=== PATIENT | female | born 1950 | race Caucasian/White ===

== ENCOUNTER 2018-01-12 07:30 | Inpatient (IN) | payer OTHER ==
--- NOTE | 2018-01-05 10:12 | RAD REPORT ---
EXAM DESCRIPTION: RADOP - Outpt Chest Pa/Lat (2 Views) - 01/05/2018 9:43 am CLINICAL HISTORY: Preop chest, pending knee surgery COMPARISON: None. TECHNIQUE: PA and lateral views of the chest were obtained. FINDINGS: The lungs are clear of a focal consolidation, mass or acute failure finding. Lung posada a re fibrotic. Trachea is midline. Heart size is normal and central vasculature is within normal limits. No pleural effusion or pneumothorax seen. No acute bony finding noted. No acute aortic finding. IMPRESSION: Prominent interstitial markings believed to be baseline fibrotic change. No acute findi ng.
[2018-01-05 10:28] LABS: Absolute Lymphocytes (CBC) 3.8 K/uL (0.7-4.9); Absolute Monocytes 0.8 K/uL (0.1-1.3); Absolute Neutrophil 5.9 K/uL (1.8-8.0); Basophils % 1.4 % (0-1.3); Eosinophils % 0.8 % (0-4.4); Hematocrit 42.6 % (36.0-45.0); Lymphocytes % 35.7 % (15.3-44.8); MCH 28.9 pg (27.0-35.0); MCV 87.8 fL (80-100); MPV 10.6 fL (7.6-11.3); Monocytes % 7.3 % (3.3-12.3); RBC Red Blood Cell Count 4.85 M/uL (3.86-4.86)
[2018-01-05 10:36] LABS: Protime INR 0.92
[2018-01-05 10:40] LABS: Potassium 5.2 mEq/L (3.6-5.0)
[2018-01-05 11:09] LABS: Urine Appearance SL CLOUDY; Urine Bilirubin NEGATIVE (NEG); Urine Blood NEGATIVE (NEG); Urine Color YELLOW; Urine Glucose NEGATIVE (NEG); Urine Protein NEGATIVE (NEG); Urine Specific Gravity 1.025 (1.005-1.030); Urine pH 5.5 (5.0-7.0)
[2018-01-05 11:11] LABS: Urine Microscopic Reflex ORDER UMIC; Urine Urobilinogen 0.2 mg/dL (0.2-1.0)
[2018-01-05 11:28] LABS: Urine Bacteria 20-50 /HPF (<20); Urine Culture Reflex Order REFLEXED; Urine RBC <5 /HPF (NONE SEEN)
--- NOTE | 2018-01-05 14:55 | EKG ---
Test Date: 2018-01-05 Test Time: 09:47:56 Hammer Runner: JACK MEASUREMENT RESULTS: Intervals: Rate: 96 OR: 130 QRSD: 66 QT: 358 QTc: 452 [place]: P: 68 OR: 130 QRS: 32 T: 70 INTERPRETIVE STATEMENTS: Sinus rhythm with premature atrial complexes with aberrant conduction Abnormal ECG No previous ECG available for comparison Electronically Signed On 01-05-18 14:54:14 CDT by Tye Coon
[2018-01-19] MEDS ORDERED: NA CHLORIDE 0.9% 1,000 ML ONE ×3 (06:40→12:39)
[2018-01-19] MEDS ORDERED: CEFAZOLIN/SWI 1gm 1 GM/10 ML SYR ONE (06:41)
[2018-01-19] MEDS ORDERED: LIDOCAINE 2% MPF 5 ML VIAL ONE (06:47)
[2018-01-19] MEDS ORDERED: FENTANYL CITR 250 MCG/5 ML ONE (06:47)
[2018-01-19] MEDS ORDERED: PROPOFOL 200 MG/20 ML VIAL IV ONE (06:47)
[2018-01-19] MEDS ORDERED: MIDAZOLAM HCL 2 MG/2 ML INJ ONE (06:47)
[2018-01-19] MEDS ORDERED: DEXAMETHASONE 4 MG/ML VIAL ONE (06:55)
[2018-01-19] MEDS ORDERED: ROPLVACAINE HCL 20 ML ONE (06:55)
[2018-01-19] MEDS ORDERED: BUPIVACA 0.5%/EPI 0.0005%/PF 30 ML VIAL ONE (06:57)
[2018-01-19] MEDS ORDERED: TRANEXAMIC ACID 1,000 MG in NA CHLORIDE 0.9% 50 ML IV SCH (07:00)
[2018-01-19] MEDS ORDERED: BUPIVACA 0.25%/EPI 0.0005%/PF 30 ML VIAL ONE (09:05)
[2018-01-19] MEDS ORDERED: Phenylephrine HCl 10 MG/ML 1 ML VIAL ONE (09:40)
[2018-01-19] MEDS ORDERED: KETOROLAC 30 MG/ML INJ ONE (09:44)
--- NOTE | 2018-01-19 10:16 | P.BOP ---
Preoperative diagnosis: left knee osteoarthritis Postoperative diagnosis: same Primary procedure: left total knee arthroplasty Drafter Topographical: NONE,NONE Estimated blood loss: 20 cc Specimen: left knee bone remnants Findings: see dictaion Anesthesia: General Complications: None Drain(s): Urinary catheter Implants: Biomet 60 CR femur, 71 tibial tray, 10 mm CR E-poly, 34 patella Fluids & blood products: per anesthesia; TT: 91 mins @ 300 mmHg Transferred to: Recovery Room Condition: Good
[2018-01-19] MEDS ORDERED: DOCUSATE NA 100 MG CAP PO PRN (10:17)
[2018-01-19] MEDS ORDERED: ONDANSETRON 4 MG/2 ML VIAL IV PRN (10:17)
[2018-01-19] MEDS: MEPERIDINE HCL 50 MG/ML AMP ONE ×2 (10:30→10:35)
[2018-01-19] MEDS ORDERED: MEPERIDINE HCL 50 MG/ML AMP ONE (10:50)
[2018-01-19 10:53] LABS: Hematocrit 37.4 % (36.0-45.0)
--- NOTE | 2018-01-19 11:35 | RAD REPORT ---
EXAM DESCRIPTION: RAD - Knee Left 2 View - 01/19/2018 11:16 am CLINICAL HISTORY: Postop left TKA. COMPARISON: None. FINDINGS: A left total knee arthroplasty has been performed. Hardware is in expected location. A carolina gical drain is in place. Air is present in the joint space. IMPRESSION: Postoperative left knee with no unexpected finding.
[2018-01-19] MEDS: Morphine 2 MG/2 ML SYR IV PRN ×2 (14:12→18:38)
[2018-01-19 14:16] VITALS: BMI 27.8
[2018-01-19] MEDS: CEFAZOLIN/SWI 1gm 1 GM/10 ML SYR IV SCH (17:26)
[2018-01-19] MEDS: METFORMIN HCL 500 MG TAB PO SCH (17:26)
[2018-01-19] MEDS: ATORVASTATIN 20 MG TAB PO SCH (20:49)
[2018-01-19] MEDS: OXYCODONE *CR* 10 MG TAB PO SCH (20:49)
[2018-01-20] MEDS: CEFAZOLIN/SWI 1gm 1 GM/10 ML SYR IV SCH ×2 (00:35→08:22)
[2018-01-20] MEDS: HYDROCODONE/APAP 7.5/325 MG TAB PO PRN ×4 (01:05→17:18)
[2018-01-20] MEDS: LISINOPRIL 20 MG TAB PO SCH (05:49)
[2018-01-20] MEDS: ENOXAPARIN 30 MG/0.3 ML SQ SCH ×2 (05:50→17:18)
[2018-01-20 06:07] LABS: Absolute Lymphocytes (CBC) 4.7 K/uL (0.7-4.9); Absolute Monocytes 1.4 K/uL (0.1-1.3); Absolute Neutrophil 9.2 K/uL (1.8-8.0); BUN Blood Urea Nitrogen 14 mg/dL (6-20); Basophils % 0.5 % (0-1.3); Bicarbonate 24 mEq/L (21-31); Eosinophils % 0.4 % (0-4.4); Glucose Level 109 mg/dL (65-120); Hematocrit 35.1 % (36.0-45.0); Lymphocytes % 30.5 % (15.3-44.8); MCH 28.9 pg (27.0-35.0); MCV 87.5 fL (80-100); MPV 10.7 fL (7.6-11.3); Monocytes % 9.1 % (3.3-12.3); RBC Red Blood Cell Count 4.02 M/uL (3.86-4.86); Sodium Level 136 mEq/L (135-145)
--- NOTE | 2018-01-20 07:57 | P.PN ---
Subjective Date of Service: 01/20/18 Chief Complaint: s/p L TKA Subjective: No new changes (pain controlled; in CPM) Physical Examination - Vital Signs Temperature: 98.0 F Blood Pressure: 104/59 Pulse: 76 Respirations: 18 Pulse Ox (%): 94 - Physical Exam General: Alert, In no apparent distress Musculoskeletal: Other (LLE: dressing c/d/i; +EHL/FHL/GSC/TA; sensation grossly intact distally) - Studies Laboratory Data (last 24 hrs) 01/20/18 05:09: Sodium 136, Potassium 4.0, BUN 14, Creatinine 0.62, Glucose 109 01/20/18 05:09: WBC 15.5 H, Hgb 11.6 L, Hct 35.1 L, Plt Count 242 01/19/18 10:40: Hgb 12.1, Hct 37.4 Assessment And Plan - Plan Farida is a 67 yo female s/p L TKA POD#1 -acute expected postoperative blood loss anemia; continue to monitor H/H -PT to mobilize; WBAT LLE -lovenox for DVT prophylaxis -d/c conrad -patient will be admitted for at least 2 midnights
[2018-01-20] MEDS: CELECOXIB 100 MG CAPSULE PO SCH (08:21)
[2018-01-20] MEDS: METFORMIN HCL 500 MG TAB PO SCH ×2 (08:22→17:18)
[2018-01-20] MEDS: MULTIVIT W/ MINERAL TAB PO SCH (08:22)
[2018-01-20] MEDS: Morphine 2 MG/2 ML SYR IV PRN (08:23)
[2018-01-20] MEDS: OXYCODONE *CR* 10 MG TAB PO SCH ×2 (10:05→20:06)
--- NOTE | 2018-01-20 18:34 | OP ---
Date of Procedure: 01/19/2018 Surgeon: Jerry Aguiar MD Preoperative Diagnosis: Left knee osteoarthritis. Postoperative Diagnosis: Left knee osteoarthritis. Procedure Performed: Left total knee arthroplasty. Anesthesia: General LMA. Fluids: Per Anesthesia record. Ebl: 20 cc. Tourniquet Time: 91 minute at 300 mmHg. Complications: None. Implants: 1.A Biomet size 60 CR femur. 2.A 31 tibial tray. 3.A 34 patella and 10 mm CR E poly. Indication For Procedure: Ms. Perea is a 67-year-old female who presented to my clinic with signs, symptoms, and x-ray finding consistent with severe degenerative osteoarthritis. The patient failed conservative treatment measures including corticosteroid injection, viscosupplementation injections, oral anti-inflammatories, and a guided home exercise program. I discussed with the patient at length risks, benefits associated with operative and nonoperative treatment, and she expressed understandin g and elected to proceed with operative treatment. Description Of Procedure: After informed consent was obtained, the patient was identified in the pre operative holding area. The left lower extremity was marked. The patient underwent a femoral nerve block performed by Anesthesia in the recovery room and then was transferred to the operating room. S he was transferred to the operating table in supine fashion and placed under general LMA anesthesia. The left lower extremity was then prepped and draped in usual sterile fashion. A time-out was initi ated. Correct patient and procedure were confirmed and identified. The patient did receive her preo perative prophylactic antibiotics. The left lower extremity was exsanguinated and the tourniquet inf lated to 300 mmHg. Approximately a 15 cm longitudinal incision was made over the anterior aspect of the knee. Dissection was then taken down to the extensor mechanism where a median parapatellar arthr otomy was performed. The patella was anteverted. Lateral release was performed. Osteophytes were t hen removed off the patella. Fat pad was removed and the knee was placed in flexion. The medial men iscus, lateral meniscus, and ACL were removed. The fat pad and synovium were removed just proximal t o the distal femur and cutting block which had been prepared preoperatively using MRI imaging was the n placed over the femur and pins were placed. The distal femoral cutting block was then placed over the pins and distal femur was cut. Bony remnants were removed. Next, a chamfer cutting block was pl aced over the distal femur where prior pin in place. The setting was locked into position. Anterior -posterior cuts were made as well as the anterior-posterior chamfer cuts. Willie wings had been used to ensure proper depth to cuts prior to the cuts being made. Bony remnants were removed. Remaining medial and lateral meniscus were removed and the knee was placed in hyperflexion. Soft tissue was th en elevated off the proximal medial aspect of the proximal tibia. The tibial cutting block was then placed into position over the proximal tibia and an alignment vane was used to ensure proper alignment . Pins were placed. The cutting jig was then placed over the prior plate pins and the proximal tibi al was cut. The bony fragments were then removed and felt to be a pretty even and stable cut. A 10 mm spacer was then placed to ensure proper depth of the cut. It was noted to be a little tight, 2 mm of extra bone set of the proximal tibia. The trial implant including a size 60 CR femur, 31 tibial tray, 10 mm poly was then placed. There was good overall stability to the knee and good range of mot ion with full extension and flexion. Those implants were selected. Next, attention was taken to pre paring the patella. A size 34 patella was selected. A patella planer was then used to get to subcho ndral bone. The patella was drilled. A size 34 patella implant was placed. The knee was place in a range of motion. There was good overall stability to the patella. Tibial tray was marked, and the femoral holes were drilled. A trial femoral implant was removed. A tibial tray was then applied and placed in a proper position, and the tibia was prepared. The knee was then irrigated thoroughly wit h normal saline using a pulse lavage. A 30 cc of 0.5% Marcaine with epi was then injected in the syn ovium capsule and periosteum. The cement was prepared on the back table. A size 31 tibial tray was first placed, followed with excess cement removed using [place] elevators, followed by placement of the size 60 CR femur. Again excess cement was removed using a [place] elevator and a 10 mm trial poly was placed. There were good motion and good stability noted. The cement was placed in the underside of the patella and the patella implant was put into position. The knee was held in hyperextension unti l the cement hardened. The trial poly was then removed and a 10 mm CR E poly was placed, locked in p osition. The knee was then again irrigated with normal saline. Tourniquet was let down. Hemostasis was achieved using Bovie cautery. The extensor mechanism was closed interrupted running #1 Vicryl. The deep fascia was then approximated using a 0 Vicryl. Subcu tissue was approximated using a 2-0 V icryl. The skin was approximated using a 3-0 nylon. Sterile dressings were placed. The patient was awakened, transferred to PACU in stable condition. Postoperative Plan: She will be weightbearing as tolerated. Physical Therapy will be consulted to a id with mobilization, and she will be admitted to the floor for pain management and medical monitorin alecia VILLA/STEFANI Voice ID: [id number] Report ID: [id number]
[2018-01-20] MEDS: ATORVASTATIN 20 MG TAB PO SCH (20:06)
[2018-01-20 21:28] VITALS: O2SAT 96
[2018-01-21] MEDS: Morphine 2 MG/2 ML SYR IV PRN ×2 (00:27→05:29)
[2018-01-21] MEDS: LISINOPRIL 20 MG TAB PO SCH (05:30)
[2018-01-21] MEDS: ENOXAPARIN 30 MG/0.3 ML SQ SCH (05:31)
[2018-01-21 06:45] LABS: Absolute Lymphocytes (CBC) 3.2 K/uL (0.7-4.9); Absolute Monocytes 1.6 K/uL (0.1-1.3); Absolute Neutrophil 9.7 K/uL (1.8-8.0); Basophils % 0.4 % (0-1.3); Eosinophils % 0.1 % (0-4.4); Hematocrit 34.9 % (36.0-45.0); Lymphocytes % 22.3 % (15.3-44.8); MCH 28.9 pg (27.0-35.0); MCV 86.7 fL (80-100); MPV 11.4 fL (7.6-11.3); Monocytes % 10.9 % (3.3-12.3); RBC Red Blood Cell Count 4.03 M/uL (3.86-4.86)
[2018-01-21 06:53] LABS: BUN Blood Urea Nitrogen 9 mg/dL (6-20); Bicarbonate 23 mEq/L (21-31); Glucose Level 138 mg/dL (65-120); Potassium 4.1 mEq/L (3.6-5.0); Sodium Level 136 mEq/L (135-145)
[2018-01-21] MEDS: CELECOXIB 100 MG CAPSULE PO SCH (08:17)
[2018-01-21] MEDS: METFORMIN HCL 500 MG TAB PO SCH (08:17)
[2018-01-21] MEDS: MULTIVIT W/ MINERAL TAB PO SCH (08:17)
[2018-01-21] MEDS: OXYCODONE *CR* 10 MG TAB PO SCH (08:17)
--- NOTE | 2018-01-21 11:05 | P.DS ---
Admission Date: 01/19/18 Discharge Date: 01/21/18 Disposition: ROUTINE DISCHARGE Discharge Condition: GOOD Reason for Admission: s/p L TKA Consultations: none Procedures: left total knee arthroplasty Brief History of Present Illness: Farida is a 67 yo female with history of left knee osteoarthritis. She underwent left TKA on 01/18/2018 without complication. Hospital Course: Farida underwent L TKA on 01/19/2018 without complication. She was admitted to the floor postoperatively in stable condition. Her vitals and H/H were monitored and remained stable throughout her hospital course. Physical therapy was consulted and aided with mobilization and patient was found to mobilize safely. She was discharged on 01/21/2018 in stable condition with home health physical therapy. Her dressing were changed prior to discharge. Vital Signs/Physical Exam: Temp Pulse Resp BP Pulse Ox 97.1 F 105 H 18 133/72 95 01/21/18 08:00 01/21/18 08:00 01/21/18 08:00 01/21/18 08:00 01/21/18 08:00 Laboratory Data at Discharge: WBC 14.5 K/uL (4.3-10.9) H 01/21/18 05:38 Hgb 11.6 g/dL (12.0-15.0) L 01/21/18 05:38 Hct 34.9 % (36.0-45.0) L 01/21/18 05:38 Plt Count 246 K/uL (152-406) 01/21/18 05:38 PT 10.8 SECONDS (9.5-12.5) 01/05/18 09:35 INR 0.92 01/05/18 09:35 APTT 33.0 SECONDS (24.3-36.9) 01/05/18 09:35 Sodium 136 mEq/L (135-145) 01/21/18 05:38 Potassium 4.1 mEq/L (3.6-5.0) 01/21/18 05:38 BUN 9 mg/dL (6-20) 01/21/18 05:38 Creatinine 0.55 mg/dL (0.44-1.00) 01/21/18 05:38 Glucose 138 mg/dL (65-120) H 01/21/18 05:38 Home Medications: Atorvastatin Calcium [Lipitor] 20 mg PO BEDTIME 01/05/18 Lisinopril [Prinivil] 20 mg PO [id number] 01/05/18 Metformin HCl [Glucophage] 500 mg PO BIDWM 01/05/18 Multivitamin [Multivitamins] 1 each PO DAILY 01/05/18 Patient Discharge Instructions: keep dressing clean, dry and intact; may change as needed with nonadherent gauze, 4x4 and MYLES bandage Diet: Regular Activity: Weight bearing as tolerated Followup: Jerry Aguiar MD [ACTIVE - CAN ADMIT] - 02/01/18
[2018-01-21] MEDS: HYDROCODONE/APAP 7.5/325 MG TAB PO PRN (12:31)
[2018-01-21 13:21] VITALS: BP 115/58; TEMP 97.2
== END 2018-01-21 14:23 | disposition home health service (06) | DRG 470 ==
LOC: EDSTATUS 07:30 → DSO 01-19 05:44 → 2ND 01-19 12:30
PROVIDERS: ADMIT Orthopaedic Surgery Sports Medicine; ATTEND Orthopaedic Surgery Sports Medicine
PROC: 0SRD069 Replacement of Left Knee Joint with Oxidized Zirconium on Polyethylene Synthetic Substitute, Cemented, Open Approach (ICD-10-PCS; principal; 2018-01-19 07:30)
DX: M17.12 Unilateral primary osteoarthritis, left knee (principal)
CPT/HCPCS: 36415; 71046; 80048; 81003; 81015; 82962; 85014; 85018; 85025; 85610; 85730; 87086; 87088; 88304; 88305; 88311; 93005; 97163; J0690; J1650; J2175; J2250; J2270; J2370; J2405; J2795; J7030

== ENCOUNTER 2018-08-03 07:16 | Day surgery (SDC) | payer OTHER ==
--- OUTSIDE RECORDS SUMMARY | 2018-08-03 07:19 | XMS REPORT ---
:1950 Author Organization e[employer] Care Team Providers Name Role Phone Jerry Aguiar Provider Role Unavailable Allergies No Known Allergies Problems Problem Type Condition Code Onset Dates Condition Status Problem Status post total left knee Z96.652 Active replacement Medications No Known Medications Results No Known Results Summary Purpose eClinicalWorks Submission
--- OUTSIDE RECORDS SUMMARY | 2018-08-03 07:19 | XMS REPORT ---
:1950 Author Organization [employer] Care Team Providers Name Role Phone Aguiar Jerry Provider Role Unavailable Allergies No Known Allergies Problems Problem Type Condition Code Onset Dates Condition Status Problem Status post total left knee Z96.652 Active replacement Medications Medication Code Code Instructions Start End Status Dosage System Date Date Indomethacin ER [facility] 37654956269 75 MG Orally May 20, Active 1 capsule Once a day 2018 with food or milk Results No Known Results Summary Purpose eClinicalWorks Submission
--- OUTSIDE RECORDS SUMMARY | 2018-08-03 07:19 | XMS REPORT ---
:1950 Author Organization [employer] Care Team Providers Name Role Phone Jerry Aguiar Provider Role Unavailable Allergies, Adverse Reactions, Alerts Substance Reaction Event Type N.K.D.A. Info Not Available Non Drug Allergy Problems Problem Type Condition Code Onset Dates Condition Status Assessment Pain, joint, knee, left M25.562 Active Problem Status post total left knee Z96.652 Active replacement Assessment Mass of right wrist R22.31 Active Assessment Pain in right wrist M25.531 Active Assessment Status post total left knee Z96.652 Active replacement Medications Medication Code Code Instructions Start End Status Dosage System Date Date Atorvastatin [facility] 92241822475 10 MG Orally April 19, Active 1 tablet Calcium Once a day 2017 Lisinopril ND 29068160325 20 MG Orally April 19, Active 1 tablet Once a day 2017 Results No Known Results Summary Purpose eClinicalWorks Submission
--- OUTSIDE RECORDS SUMMARY | 2018-08-03 07:19 | XMS REPORT ---
:1950 Author Organization [employer] Care Team Providers Name Role Phone Jerry Aguiar Provider Role Unavailable Allergies, Adverse Reactions, Alerts Substance Reaction Event Type N.K.D.A. Info Not Available Non Drug Allergy Problems Problem Type Condition Code Onset Dates Condition Status Assessment Pain in right foot M79.671 Active Assessment Pain, joint, knee, left M25.562 Active Problem Status post total left knee Z96.652 Active replacement Assessment Mass of right wrist R22.31 Active Assessment Synovitis of right foot M65.9 Active Assessment Pain in right wrist M25.531 Active Assessment Status post total left knee Z96.652 Active replacement Medications Medication Code Code Instructions Start End Status Dosage System Date Date Atorvastatin [facility] 59183948627 10 MG Orally April 19, Active 1 tablet Calcium Once a day 2017 Lisinopril [facility] 14611446059 20 MG Orally April 19, Active 1 tablet Once a day 2017 Results No Known Results Summary Purpose eClinicalWorks Submission
--- OUTSIDE RECORDS SUMMARY | 2018-08-03 07:19 | XMS REPORT ---
:1950 Author Organization [employer] Care Team Providers Name Role Phone Jerry Aguiar Provider Role Unavailable Allergies, Adverse Reactions, Alerts Substance Reaction Event Type N.K.D.A. Info Not Available Non Drug Allergy Problems Problem Type Condition Code Onset Dates Condition Status Assessment Pain in right foot M79.671 Active Problem Status post total left knee Z96.652 Active replacement Assessment Pain in right wrist M25.531 Active Assessment Synovitis of right foot M65.9 Active Assessment Ganglion of right wrist M67.431 Active Medications Medication Code Code Instructions Start End Status Dosage System Date Date Tramadol HCl ND 52825925800 50 MG Orally Jun 07, Active 1 tablet every 6 hrs 2018 as needed Mobic ND 63488241110 7.5 MG Orally Jun 07, Active 1 tablet Once a day 2017 Atorvastatin ND 32392320690 10 MG Orally April 19, Active 1 tablet Calcium Once a day 2018 Lisinopril ND 04806483518 20 MG Orally April 19, Active 1 tablet Once a day 2018 Indomethacin ER ND 21056798751 75 MG Orally May 20, Active 1 capsule Once a day 2018 with food or milk Results No Known Results Summary Purpose eClinicalWorks Submission
[2018-08-03] MEDS ORDERED: CEFAZOLIN/SWI 1gm 1 GM/10 ML SYR ONE (07:52)
[2018-08-03] MEDS ORDERED: Ringers Lactate 1,000 ML IV ONE (07:52)
[2018-08-03] MEDS ORDERED: MIDAZOLAM HCL 2 MG/2 ML INJ ONE (08:37)
[2018-08-03] MEDS ORDERED: FENTANYL CITR 100 MCG/2 ML ONE (09:40)
[2018-08-03] MEDS ORDERED: PROPOFOL 200 MG/20 ML VIAL IV ONE (09:40)
[2018-08-03] MEDS ORDERED: LIDOCAINE 2% MPF 5 ML VIAL ONE (09:40)
[2018-08-03] MEDS: BACITRACIN 50000 UNIT VIAL ONE ×2 (10:00→10:17)
[2018-08-03] MEDS ORDERED: KETOROLAC 30 MG/ML INJ ONE (10:12)
[2018-08-03] MEDS: TRIAMCINOLONE ACETON 40 MG/ML VIAL ONE ×2 (10:22→10:26)
[2018-08-03] MEDS: MORPHINE 4 MG/ML SYR ONE ×4 (10:43→11:07)
[2018-08-03] MEDS ORDERED: HYDROCODONE/APAP 5/325 MG TAB ONE (11:47)
[2018-08-03 12:46] VITALS: BP 136/73; TEMP 97.9; O2SAT 98
== END 2018-08-03 13:05 | disposition home or self-care (01) ==
LOC: OR 07:16
PROVIDERS: ATTEND Podiatrist Foot & Ankle Surgery
PROC: 0JBQ0ZZ Excision of Right Foot Subcutaneous Tissue and Fascia, Open Approach (ICD-10-PCS; principal; 2018-08-03 08:30)
DX: D49.2 Neoplasm of unspecified behavior of bone, soft tissue, and skin (principal); I10 Essential (primary) hypertension; F17.200 Nicotine dependence, unspecified, uncomplicated
CPT/HCPCS: 28039; 88304; J0690; J2250; J2704; J3010; J3301; 88305

== ENCOUNTER 2019-07-05 06:47 | Day surgery (SDC) | payer OTHER ==
--- NOTE | 2019-07-04 16:38 | RAD REPORT ---
EXAM DESCRIPTION: RAD - Chest Pa And Lat (2 Views) - 07/04/2019 4:24 pm CLINICAL HISTORY: PRE-OP FOR HEART CATH COMPARISON: December 2017 TECHNIQUE: PA and lateral views of the chest were obtained. FINDINGS: The lungs are clear of focal infiltrate or mass. No significant failure or volume overload . Interstitial pattern is prominent with the pattern not substantially different from comparison. He art size is normal and central vasculature is within normal limits. No pleural effusion or pneumotho rax seen. No acute bony finding noted. No aortic abnormality. IMPRESSION: Prominent interstitial pattern not substantially different from comparison.
[2019-07-04 16:40] LABS: Absolute Lymphocytes (CBC) 4.4 K/uL (0.7-4.9); Basophils % 0.4 % (0-1.3); Lymphocytes % 51.5 % (15.3-44.8); MPV 10.9 fL (7.6-11.3); RBC Red Blood Cell Count 4.34 M/uL (3.86-4.86)
[2019-07-04 16:45] LABS: Protime INR 0.91
[2019-07-04 17:18] LABS: Blood Morphology Comment NOT SEEN (NOT SEEN); Platelet Estimate ADEQ
[2019-07-05] MEDS ORDERED: NA CHLORIDE 0.9% 0 ML ONE ×2 (07:14→08:13)
[2019-07-05] MEDS ORDERED: LIDOCAINE 1% MPF 30 ML VIAL ONE (07:14)
[2019-07-05] MEDS ORDERED: HEPA 1000U/500MLS 2,000 UNIT/1,000 ML BAG IV ONE (07:14)
[2019-07-05] MEDS ORDERED: NA CHLORIDE 0.9% 500 ML ONE (07:18)
[2019-07-05] MEDS ORDERED: HEPARIN 5000 UNIT/ML 1 ML VIAL ONE (08:12)
[2019-07-05] MEDS ORDERED: FENTANYL CITR 100 MCG/2 ML ONE (08:13)
[2019-07-05] MEDS ORDERED: ATROPINE SULF 1 MG/10 ML SYR IV ONE (08:13)
[2019-07-05] MEDS ORDERED: NICARDIPINE HCL 25 MG/10 ML IV ONE (08:13)
[2019-07-05] MEDS ORDERED: NITROGLYCERIN 100 MCG/ML SYR (for cath lab use only) IV ONE (08:13)
[2019-07-05] MEDS ORDERED: MIDAZOLAM HCL 2 MG/2 ML INJ ONE (08:13)
[2019-07-05] MEDS ORDERED: METOPROLOL TARTRATE 5 MG/5 ML INJ IV ONE (08:37)
[2019-07-05 11:02] VITALS: BP 136/56; TEMP 98.5; O2SAT 95
--- NOTE | 2019-07-05 19:32 | OP ---
Surgeon: Tye oCon MD Primary Care Physician: Dr. Jung. Procedure: Left heart catheterization with coronary and left ventricular angiography. Procedure Findings: The patient's ejection fraction is normal, although she has inferior wall hypoki nesis. Heart rhythm was sinus. Her aortic pressure 130/79, left ventricular end-diastolic pressure 14. No gradient on aortic valve pullback. 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 The distal p art of the right coronary is filled by collaterals and has PAUL grade 2 collateral throw both from th e LAD and obtuse marginal. The left main is free of disease. The LAD has plaquing up to 30%. The c ircumflex and its obtuse marginals have minor plaquing. No significant stenosis and the recommendati on is that the patient stop smoking, be on statin and aspirin therapy and no intervention is indicate d. No stent or bypass surgery is indicated. Procedure In Detail: The patient was brought to the cardiac laboratory engineer in a fasting, sedated with fent anyl. Prepared and draped in usual sterile fashion. Right radial artery was used. Tissues around t he artery were anesthetized with 1% lidocaine. Artery was entered using a 21-gauge needle, cannulate d with a 0.021 inch diameter, guidewire modified Seldinger technique allowed us to place a 6-Tamazight T erumo radial sheath. It was then flushed and a radial cocktail was given consisting of nicardipine, heparin, and nitroglycerin. A TIG catheter was guided into the ascending aorta using fluoroscopy and a short radius J-tip Glidewire the TIG catheter was used to angiogram right coronary, left coronary, and left ventricle. At the end of the procedure, the catheter was straightened out with a J-wire an d removed. The sheath was flushed and removed and the arteriotomy closed with a TR band. Estimated Blood Loss: 5 cc. Supervisor [employer]: Sindi Moncada. Complications: None. SHARON/MODL Voice ID: [id number] Report ID: [id number]
== END 2019-07-05 11:05 | disposition home health service (06) ==
LOC: CCL 06:47
PROVIDERS: ATTEND Internal Medicine
DX: I25.10 Atherosclerotic heart disease of native coronary artery without angina pectoris (principal); I25.82 Chronic total occlusion of coronary artery; I10 Essential (primary) hypertension; E78.5 Hyperlipidemia, unspecified; F17.210 Nicotine dependence, cigarettes, uncomplicated; E11.9 Type 2 diabetes mellitus without complications
CPT/HCPCS: 85025; 80048; 36415; 85610; 85730; 71046; 93458; C1893; J1644; J2250; J3010; J7040; J0583

== ENCOUNTER 2019-08-23 05:46 | Inpatient (IN) | payer OTHER ==
[2019-08-15 10:01] LABS: Absolute Lymphocytes (CBC) 4.9 K/uL (0.7-4.9); Basophils % 1.2 % (0-1.3); Hematocrit 40.9 % (36.0-45.0); Lymphocytes % 48.7 % (15.3-44.8); MPV 11.7 fL (7.6-11.3); RBC Red Blood Cell Count 4.72 M/uL (3.86-4.86)
[2019-08-15 10:16] LABS: Protime INR 0.92
--- OUTSIDE RECORDS SUMMARY | 2019-08-23 05:48 | XMS REPORT ---
:1950 Author Organization eClinicalWorks Care Team Providers Name Role Phone Jerry Aguiar Provider Role Unavailable Allergies, Adverse Reactions, Alerts Substance Reaction Event Type N.K.D.A. Info Not Available Non Drug Allergy Problems Problem Type Condition Code Onset Dates Condition Status Problem Primary osteoarthritis of right M17.11 Active knee Problem Status post total left knee Z96.652 Active replacement Problem Other chronic pain G89.29 Active Assessment Primary osteoarthritis of right M17.11 Active knee Assessment Pain, joint, knee, right M25.561 Active Medications Medication Code Code Instructions Start End Status Dosage System Date Date Gabapentin [facility] [address]-79 Active not defined Meloxicam [facility] [address]-32 Active not defined Atorvastatin [facility] 86696075542 10 MG Orally April 19, Active 1 tablet Calcium Once a day 2017 Lisinopril [facility] 72366294243 20 MG Orally April 19, Active 1 tablet Once a day 2017 Metformin HCl [facility] [address]-17 Active not defined Amitriptyline [facility] 00714789250 10 MG Orally Active 1 tablet HCl Once a day at bedtime Tramadol HCl [facility] 0 Active not defined [place] [facility] 42759629630 7.5-325 MG March 28, Active 1 tablet Orally every 6 2018 as needed hrs Results No Known Results Summary Purpose eClinicalWorks Submission
--- OUTSIDE RECORDS SUMMARY | 2019-08-23 05:48 | XMS REPORT ---
:1950 [facility] Address [address] [place] [address] Dr. Julien [address] [place] [address] Care Team Providers Name Role Phone Unavailable Unavailable Unavailable Problems This patient has no known problems. Allergies, Adverse Reactions, Alerts This patient has no known allergies or adverse reactions. Medications This patient has no known medications.
--- OUTSIDE RECORDS SUMMARY | 2019-08-23 05:48 | XMS REPORT ---
:1950 Author Organization eClinicalWorks Care Team Providers Name Role Phone Jerry Aguiar Provider Role Unavailable Allergies No Known Allergies Problems Problem Type Condition Code Onset Dates Condition Status Problem Primary osteoarthritis of right M17.11 Active knee Problem Status post total left knee Z96.652 Active replacement Problem Other chronic pain G89.29 Active Medications No Known Medications Results No Known Results Summary Purpose eClinicalWorks Submission
[2019-08-23] MEDS ORDERED: Ringers Lactate 1,000 ML IV ONE ×2 (05:51→08:16)
[2019-08-23] MEDS ORDERED: CEFAZOLIN/SWI 2gm 2 GM/20 ML SYR ONE (05:51)
[2019-08-23] MEDS ORDERED: dexAMETHasone 10 MG/ML VIAL ONE ×2 (06:33→08:30)
[2019-08-23] MEDS ORDERED: LIDOCAINE 2% MPF 5 ML VIAL ONE ×2 (06:33→07:28)
[2019-08-23] MEDS ORDERED: NS 0.9% VIAL 10 ML ONE (06:33)
[2019-08-23] MEDS ORDERED: BUPIVACAINE 0.25% PF 10 ML VIAL ONE (06:34)
[2019-08-23] MEDS ORDERED: MIDAZOLAM HCL 2 MG/2 ML INJ ONE ×2 (06:34→12:37)
[2019-08-23] MEDS ORDERED: FENTANYL CITR 100 MCG/2 ML ONE ×3 (06:34→11:26)
[2019-08-23] MEDS ORDERED: TRANEXAMIC ACID 1,000 MG in NA CHLORIDE 0.9% 50 ML IV SCH (07:15)
[2019-08-23] MEDS ORDERED: PROPOFOL 200 MG/20 ML VIAL IV ONE (07:27)
[2019-08-23] MEDS ORDERED: ROCURONIUM 50 MG/5 ML VIAL IV ONE (07:28)
[2019-08-23] MEDS: BUPIVACA 0.5%/EPI 0.0005%/PF 30 ML VIAL ONE ×2 (08:10→10:18)
[2019-08-23] MEDS ORDERED: KETAMINE HCL 500 MG/5 ML VIAL ONE (08:14)
[2019-08-23] MEDS ORDERED: KETOROLAC 30 MG/ML INJ ONE (08:14)
[2019-08-23] MEDS ORDERED: ONDANSETRON 4 MG/2 ML VIAL ONE (08:30)
--- NOTE | 2019-08-23 10:43 | P.BOP ---
Preoperative diagnosis: right knee osteoarthritis Postoperative diagnosis: same Primary procedure: right total knee arthroplasty Flexo Press Operator: NONE,NONE Estimated blood loss: 20 cc Specimen: right knee bone remnants Findings: see dictation Anesthesia: General Complications: None Drain(s): Urinary catheter Implants: Biomet/Darrell Size 7 STD CR femur, E tibia, 10 mm CR poly, 32 patella Fluids & blood products: per anesthesia record; TT: 103 mins @ 300 mmHg Transferred to: Recovery Room Condition: Good
[2019-08-23] MEDS ORDERED: ONDANSETRON 4 MG/2 ML VIAL IV PRN (10:44)
[2019-08-23] MEDS ORDERED: DOCUSATE NA 100 MG CAP PO PRN (10:44)
[2019-08-23] MEDS ORDERED: TRAMADOL HCL 50 MG TAB PO PRN (10:53)
[2019-08-23] MEDS: HYDROMORPHONE HCL 1 MG/ML INJ ONE ×4 (11:05→11:20)
--- NOTE | 2019-08-23 11:13 | RAD REPORT ---
EXAM DESCRIPTION: RAD - Knee Right 2 View - 08/23/2019 11:05 am CLINICAL HISTORY: Post Op Status post right TKA COMPARISON: <Comparisons> FINDINGS: Right total knee arthroplasty has been preformed. Soft tissue swelling is seen with anteri or skin tricia. Small amount of air is present in the joint space.
[2019-08-23] MEDS: MEPERIDINE HCL 25 MG/0.5 ML ONE ×2 (11:25→11:40)
[2019-08-23 11:37] LABS: Hematocrit 38.7 % (36.0-45.0)
[2019-08-23 12:41] VITALS: BMI 27.8
[2019-08-23] MEDS: MORPHINE 4 MG/ML SYR IV PRN (15:34)
[2019-08-23] MEDS: CEFAZOLIN/SWI 2gm 2 GM/20 ML SYR IV SCH (16:46)
[2019-08-23] MEDS: HYDROCODONE/APAP 7.5/325 MG TAB PO PRN (18:44)
[2019-08-23] MEDS: AMITRIPTYLINE 10 MG TAB PO SCH (21:01)
[2019-08-23] MEDS: ATORVASTATIN 20 MG TAB PO SCH (21:01)
[2019-08-24] MEDS: CEFAZOLIN/SWI 2gm 2 GM/20 ML SYR IV SCH ×2 (00:45→09:12)
--- NOTE | 2019-08-24 02:36 | OP ---
Date of Procedure: 08/23/2019 Surgeon: Jerry Aguiar MD Preoperative Diagnosis: Right knee osteoarthritis. Postoperative Diagnosis: Right knee osteoarthritis. Procedure Performed: Right total knee arthroplasty. Anesthesia: General. Estimated Blood Loss: 20 cc. Fluids: Per Anesthesia record. Tourniquet Time: 103 minutes at 300 mmHg. Implant: [employer]omet Darrell Persona size 7 standard CR femur, size E tibia, 10 mm CR poly, and a size 32 patella. Complications: None. Indication For Procedure: Farida is 69-year-old female who presented to my clinic with signs, symptoms, and x-ray findings consistent with severe degenerative arthritis of her right knee. The patient failed conservative treatment measures including anti-inflammatory medications, corticosteroid injections, viscosupplementation injections as well as home exercise program. Given her continued pain that effected her ADLs, we discussed and agreed to proceed with right total knee arthroplasty. Description Of Procedure: After informed consent was obtained, the patient was identified in the preoperative holding area. The right lower extremity was marked. The patient was then brought back to the operating room, transferred to the operating table in supine fashion, and placed under general anesthesia. The right lower extremity was then prepped and draped in usual sterile fashion and time-out was initiated. The correct patient and procedure were confirmed and identified. The patient had received her preoperative prophylactic antibiotics. The right lower extremity was then exsanguinated using an Esmarch. Tourniquet was inflated to 300 mmHg. Approximately 15 cm longitudinal incision was made centered over the anterior knee. Dissection was then taken down to the extensor mechanism and a standard median parapatellar approach was taken to the knee. The patella was inverted. The fat pad was then excised. The soft tissues were then elevated medially over the proximal tibia. The medial and lateral menisci were excised as well as ACL and the knee was placed in the hyperflexion. Hypertrophic synovial tissue was then excised over the anterior knee. The retractors were then put into place to protect the collateral ligaments. A distal femoral jig was then placed on the distal femur. The guides were made preoperatively using preoperative MRI. The guide snapped onto the distal femur. Pins were placed both anteriorly and distally. The distal pins were then marked and the distal femoral cutting guide was then placed over the appendage. The distal femur was then cut. The pins were removed followed by 4-in-1 cutting guide. 4-in-1 cutting guide was then placed at the prior placed pin sites on the distal end of the femur. It was pinned into position. It was noted that the patient had soft bones as the pins were having difficulty getting any purchase within her bone, and an additional pin was placed to aid with holding the cutting block in position. The knee joint was then used to ensure proper position and proper cuts and there was no obvious notching of the femur to be noted. The anterior and posterior cuts were then made followed by the anterior posterior chamfer cuts. Bone remnants were then removed without complication. Next, attention was taken to the proximal tibia again cutting guide, which had been made preoperatively was placed and snapped into position on the proximal tibia. Alignment vane was then attached to the guide and there was overall good alignment with good slope as well as good alignment in line with the tibial shaft. The pins were placed followed by the cutting guide and the proximal tibial cut was then made ensuring protection of the PCL at all times. The bone that was removed was measured on the back table consistent with the size E tibia. Spacer blocks were put into position with some tightness using a size 10 spacer block and 2 mm of extra tibia was cut. After this was performed, there was overall good fit in extension and flexion with a 10 mm spacer block. Next, attention was taken to the patella where lateral release was performed. The patella was cut to size, 32 patella was selected and trial implants were then placed using a size 7 standard CR femur and E tibia and a 10 mm poly. There was good overall stability in flexion and extension with good overall range of motion with full extension achieved. Patellar button was also placed and there was good overall feel with the patellar tracking. The tibial tray was marked. The trial instruments were then removed. Next, a size E tibia was confirmed and the tibia was punched. All the trial instruments were removed. The wound was then irrigated thoroughly with normal saline and 30 cc of 0.5% Marcaine with epinephrine was then injected in the posterior capsule into the anterior synovium and the extensor mechanism and periosteum of the distal femur and proximal tibia. Next, cement was prepared on the back table with the knee held in hyperflexion. The cement was then placed on the proximal tibia with placement of a size E tibia, followed by placement of cement on the distal femur using a size 7 standard femur. A 10 mm poly was then placed. Excess cement was removed using [place] elevators. The knee was then placed in extension as the cement dried, and attention was placed into the tip placed in the patellar button on. Cement was placed on the backside of the patella and the patellar button was placed with compression held on the patellar button throughout drying of the cement. Excess cement was removed. Once the cement was completely hard, the knee was then ranged and had good overall range of motion and stability in flexion, extension. A final 10 mm CR poly was then placed into position and locked into position without complication. The knee was again ranged. There was full stable range of motion. The wound was then irrigated thoroughly. Extensor mechanism was approximated using #1 Vicryl in interrupted and running fashion. The deep fascia was approximated using a 0 Vicryl. Skin and subcutaneous tissue were approximated using a 2-0 Vicryl. Skin was approximated using tricia. Sterile dressings were applied. The patient was awakened and transferred to PACU in stable condition. Postoperative Plan: She will be admitted to the floor. We will monitor her vital signs and labs. Physical Therapy will be consulted to aid with mobilization. ALLEN/STEFANI Voice ID: [id number] Report ID: [id number] FUNMI
[2019-08-24] MEDS: HYDROCODONE/APAP 7.5/325 MG TAB PO PRN ×4 (06:07→23:51)
[2019-08-24] MEDS: ENOXAPARIN 30 MG/0.3 ML SQ SCH ×2 (06:07→18:54)
[2019-08-24] MEDS: CELECOXIB 100 MG CAPSULE PO SCH (09:12)
--- NOTE | 2019-08-24 12:29 | P.PN ---
Subjective Date of Service: 08/24/19 Chief Complaint: s/p R TKA Subjective: Ambulating, Improving, Working w/ PT pain controlled Physical Examination - Vital Signs Temperature: 98.6 F Blood Pressure: 120/64 Pulse: 85 Respirations: 20 Pulse Ox (%): 96 - Physical Exam General: Alert, In no apparent distress Musculoskeletal: Other (RLE: dressing c/d/i; +EHL/FHL/GSC/TA; + straight leg raise; sensation grossly intact distally) Assessment And Plan - Plan Farida is a 69 yo female s/p right total knee arthroplasty POD#1 -PT to mobilize; WBAT RLE -lovenox for DVT prophylaxis -likely d/c in AM
--- NOTE | 2019-08-24 18:10 | P.HP ---
Certification for Inpatient Patient admitted to: Observation With expected LOS: <2 Midnights Practitioner: I am a practitioner with admitting privileges, knowledge of patient current condition, hospital course, and medical plan of care. Services: Services provided to patient in accordance with Admission requirements found in Title 42 Section 412.3 of the Code of Federal Regulations Patient History Date of Service: 08/24/19 Reason for admission: s/p R TKA History of Present Illness: MS. KOHLER IS REASONABLY HEALTHY LADY WITH KNEE PAIN ON RIGHT SIDE, UNDERWENT SURGERY FOR TKR, IS DOING WELL AND NOW WAITING FOR REHAB. Allergies No Known Allergies Allergy (Verified 08/15/19 08:17) Home Medications: Atorvastatin Calcium [Lipitor*] 20 mg PO BEDTIME 01/05/18 Multivitamin [Multivitamins] 1 each PO DAILY 01/05/18 Codeine/APAP [Tylenol W/Codeine #3 tab] 1 tab PO Q6HP PRN 08/01/18 Amitriptyline HCl 10 mg PO DAILY 08/15/19 - Past Medical/Surgical History Has patient received pneumonia vaccine in the past: Yes Diabetic: Yes -: Diabetes -: HTN -: Hyperlipidemia -: 3 c sections -: hysterectomy 1978 -: appy -: left knee replacement january 2018 - Family History Sister -: Hypertension, Diabetes Notes: brother from cancer???dont know what type - Social History Smoking Status: Former smoker Alcohol use: No CD- Drugs: No Caffeine use: Yes Place of Residence: Home Review of Systems 10-point ROS is otherwise unremarkable Musculoskeletal: As per HPI Physical Examination - Vital Signs Temperature: 98.4 F Blood Pressure: 117/66 Pulse: 98 Respirations: 20 Pulse Ox (%): 94 - Physical Exam General: Alert, Mild distress HEENT: Atraumatic, PERRLA, Mucous membr. moist/pink, EOMI, Sclerae nonicteric Neck: Supple, 2+ carotid pulse no bruit, No LAD, Without JVD or thyroid abnormality Respiratory: Clear to auscultation bilaterally, Normal air movement Cardiovascular: Regular rate/rhythm, Normal S1 S2 Gastrointestinal: Normal bowel sounds, No tenderness Musculoskeletal: No tenderness, Other (SP TKR R SIDE.) Integumentary: No rashes Neurological: Normal gait, Normal speech, Normal strength at 5/5 x4 extr, Normal tone, Normal affect Lymphatics: No axilla or inguinal lymphadenopathy Assessment and Plan - Problems (Diagnosis) (1) S/P TKR (total knee replacement) Current Visit: Yes Status: Acute Plan: SURGERY DONE. SP R TKR. CONT PT REHAB OR HOME. DVT PX. Qualifiers: Laterality: right Qualified Code(s): Z96.651 - Presence of right artificial knee joint - Advance Directives Does patient have a Living Will: No Does patient have a Durable POA for Healthcare: No
[2019-08-24] MEDS: ATORVASTATIN 20 MG TAB PO SCH (21:02)
[2019-08-24] MEDS: AMITRIPTYLINE 10 MG TAB PO SCH (21:02)
[2019-08-25] MEDS: MORPHINE 4 MG/ML SYR IV PRN (04:50)
[2019-08-25] MEDS: ENOXAPARIN 30 MG/0.3 ML SQ SCH (04:57)
--- NOTE | 2019-08-25 08:34 | P.DS ---
Admission Date: 08/23/19 Discharge Date: 08/25/19 Disposition: DC HOME/HOME HEALTH CARE Discharge Condition: GOOD Reason for Admission: s/p R TKA Consultations: Dr. Jung Procedures: right total knee arthroplasty on 08/23/2019 Brief History of Present Illness: Farida is a 69 yo female with h/o HTN and diabetes admitted to the hospital on 08/23/2019 after right total knee arthroplasty in stable condition. Hospital Course: Patient was admitted postoperatively in stable condition. Her H/H and vital signs were stable postoperatively and physical therapy was consulted to aid with mobilization. She was walking well with use of walker during admission. Dr. Jung was consulted to aid with medical management given her past medical history of HTN an DM. She was discharged on 08/25/2019 in stable condition. She took lovenox during hospitalization for DVT prophylaxis and was discharged on Xarelto. She will followup in 2 weeks for wound check and staple removal. Vital Signs/Physical Exam: Temp Pulse Resp BP Pulse Ox 97.9 F 97 H 16 149/80 H 97 08/25/19 04:00 08/25/19 04:00 08/25/19 04:00 08/25/19 04:00 08/25/19 04:00 Laboratory Data at Discharge: WBC 10.1 K/uL (4.3-10.9) 08/15/19 08:40 Hgb 12.7 g/dL (12.0-15.0) 08/23/19 11:08 Hct 38.7 % (36.0-45.0) 08/23/19 11:08 Plt Count 259 K/uL (152-406) 08/15/19 08:40 PT 10.9 SECONDS (9.5-12.5) 08/15/19 08:40 INR 0.92 08/15/19 08:40 APTT 31.9 SECONDS (24.3-36.9) 08/15/19 08:40 Sodium 140 mmol/L (136-145) 08/15/19 08:40 Potassium 4.0 mmol/L (3.5-5.1) 08/15/19 08:40 BUN 11 mg/dL (7-18) 08/15/19 08:40 Creatinine 0.80 mg/dL (0.55-1.3) 11/26/19 08:40 Glucose 126 mg/dL (74-106) H 08/15/19 08:40 Home Medications: Atorvastatin Calcium [Lipitor*] 20 mg PO BEDTIME 01/05/18 Multivitamin [Multivitamins] 1 each PO DAILY 01/05/18 Amitriptyline HCl 10 mg PO DAILY 08/15/19 Hydrocodone 7.5/APAP 325 [[place] 7.5/325 mg*] 1 tab PO Q4H PRN tab 08/25/19 Patient Discharge Instructions: keep dressing clean, dry and intact; WBAT RLE; start Xarelto tomorrow 08/26/2019 in the morning with breakfast and take once daily Diet: Regular Activity: Weight bearing as tolerated Followup: Jerry Aguiar MD [ACTIVE - CAN ADMIT] - 1-2 Weeks
[2019-08-25] MEDS: CELECOXIB 100 MG CAPSULE PO SCH (10:39)
[2019-08-25 12:49] VITALS: O2SAT 95
[2019-08-25 13:27] VITALS: BP 142/70; TEMP 98.4
--- NOTE | 2019-08-26 19:00 | PN ---
Subjective: Ms. Perea is doing really well after surgery on right knee. She denies any chest pain , nausea, vomiting. Objective: Chest: Clear. Heart: Regular. Abdomen: No guarding. No rebound. No rigidity. Plan: Discharge condition stable. Discharge medications have been taken care by Dr. Aguiar including DVT prophylaxis. DANIEL/MODL Voice ID: [id number] Report ID: [id number]
== END 2019-08-25 12:23 | disposition home health service (06) | DRG 470 ==
LOC: OR 05:46 → 2ND 10:45
PROVIDERS: ADMIT Orthopaedic Surgery Sports Medicine; ATTEND Orthopaedic Surgery Sports Medicine
PROC: 0SRC069 Replacement of Right Knee Joint with Oxidized Zirconium on Polyethylene Synthetic Substitute, Cemented, Open Approach (ICD-10-PCS; principal; 2019-08-23 07:30)
DX: M17.11 Unilateral primary osteoarthritis, right knee (principal); I10 Essential (primary) hypertension; E11.9 Type 2 diabetes mellitus without complications
CPT/HCPCS: 36415; 80048; 85014; 85018; 85025; 85610; 85730; 88304; 88305; 88311; 97110; 97116; 97139; 97161; 97530; J0690; J1100; J1170; J1650; J2175; J2250; J2405; J2704; J3010; J7120

== ENCOUNTER 2024-03-21 09:24 | Emergency (ER) | payer OTHER ==
--- OUTSIDE RECORDS SUMMARY | 2024-03-21 09:28 | XMS REPORT | Continuity of Care Document ---
Author Name Unknown Address [address] [facility] [address] [place] [address] [facility] thconnect Address [address] 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 Phone Steffi Terrazas Attending Clinician Unavailable Payers Payer Name Policy Type Policy Number Effective Date Expirati on Date Source MEDICARE NOVITAS MB [id number] [facility] [id number] [facility] Problems Condition Name Condition Details Condition Category Status Onset Date Resolution Date Last Treatment Date Treating Clinician Comments Source [id number] GERD without esophagiti s Problem [facility] [id number] Mixed hyperlipid emia Problem [facility] [id number] Aftercare following joint replacemen t surgery Problem Active [facility] [id number] 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 Problem [facility] [id number] Current smoker Problem [facility] [id number] Generalize d osteoarthr itis Problem [facility] [id number] Pain, joint, knee, right Problem Active [facility] [id number] Status post total left knee replacemen t Problem Active [facility] [id number] Primary osteoarthr itis of right knee Problem Active [facility] [id number] Other chronic pain Problem Active [facility] [id number] Presence of right artificial knee joint Problem Active [facility] Social History Social Habit Start Date Stop Date Quantity Comments Source History of Tobacco Use [facility] Sex Assigned At [facility] Smoking Status Start Date Stop Date Source Never Smoker [facility] Medications Ordered Medication Name Filled Medication Name Start Date Stop Date Current Medication? Ordering Clinician Indication Dosage Frequency Signature (SIG) Comments Components Source Hyalgan 20 mg Hyalgan 20 mg 04-24 00:00: 00 No 2mL [facility] LIDOCAINE HCL 10MG/ML LIDOCAINE HCL 10MG/ML 02-14 00:00: 00 No 10mg [facility] Kenalog (Triamcinol one) Kenalog (Triamcinol one) 02-14 00:00: 00 No 40mg [facility] PriLOSEC PriLOSEC No PriLOSEC Centrum Silver - Centrum Silver - No Centrum Silver - Vital Signs Vital Name Observation Time Observation Value Comments S ource height 2024-02-29 10:20:00 63 [in_i] Commo n [facility] weight 2024-02-29 10:20:00 164 [lb_av] Comm on [facility] temperature 2024-02-29 10:20:00 97.3 [degF] Com mon [facility] bmi 2024-02-29 10:20:00 29.05 kg/m2 Comm on [facility] oximetry 2024-02-29 10:20:00 97 % Commo n [facility] respiratory rate 2024-02-29 10:20:00 16 /min [facility] blood pressure systolic 2024-02-29 10:20:00 156 mm[Hg] [facility] blood pressure diastolic 2024-02-29 10:20:00 94 mm[Hg] [facility] height 2020-08-22 08:00:00 64 [in_i] Commo n [facility] weight 2020-08-22 08:00:00 161 [lb_av] Comm on [facility] temperature 2020-08-22 08:00:00 97.1 [degF] Com mon [facility] bmi 2020-08-22 08:00:00 27.63 kg/m2 Comm on [facility] blood pressure systolic 2020-08-22 08:00:00 142 mm[Hg] [facility] blood pressure diastolic 2020-08-22 08:00:00 86 mm[Hg] [facility] Encounters Start Date/Time End Date/Time Encounter Type Admission Type Attending [facility] Care Department Encounter ID Source 2024-02-29 09:58:00 Outpatient Steffi Terrazas [facility] [id number] [facility] 2024-02-25 09:31:00 Outpatient [facility] [id number] [facility] 2024-01-18 14:32:00 Outpatient [facility] [id number] [facility] 2024-02-29 00:00:00 2024-02-29 00:00:00 OFFICE VISIT NEW PT LEVEL 4 [facility] [id number] [facility] 2020-08-22 00:00:00 2020-08-22 00:00:00 OFFICE VISIT EST PT LEVEL 3 [facility] [id number] [facility] 2020-02-20 08:00:00 2020-02-20 08:00:00 [facility] [id number] [facility] 2019-11-20 11:00:00 2019-11-20 11:00:00 [facility] [id number] [facility] 2019-10-09 09:30:00 2019-10-09 09:30:00 [facility] [id number] [facility] 2019-10-04 12:52:00 2019-10-04 12:52:00 [facility] [id number] [facility] 2019-09-26 13:17:00 2019-09-26 13:17:00 [facility] [id number] [facility] 2019-09-07 09:00:00 2019-09-07 09:00:00 [facility] [id number] [facility] 2019-09-04 12:51:00 2019-09-04 12:51:00 [facility] [id number] [facility] 2019-08-31 13:12:00 2019-08-31 13:12:00 [facility] [id number] [facility] 2019-08-28 16:39:00 2019-08-28 16:39:00 [facility] [id number] [facility] 2019-08-23 12:52:00 2019-08-23 12:52:00 [facility] [id number] [facility] 2019-08-14 08:30:00 2019-08-14 08:30:00 [facility] [id number] [facility] 2019-07-18 11:05:00 2019-07-18 11:05:00 [facility] [place] [id number] [facility] 2019-07-12 09:29:00 2019-07-12 09:29:00 [facility] [id number] [facility] 2019-07-06 09:36:00 2019-07-06 09:36:00 [facility] [id number] [facility] 2019-06-27 10:03:00 2019-06-27 10:03:00 [facility] [id number] [facility] 2019-06-20 15:53:00 2019-06-20 15:53:00 [facility] [id number] [facility] 2019-06-14 13:09:00 2019-06-14 13:09:00 [facility] [id number] [facility] 2019-06-13 11:00:00 2019-06-13 11:00:00 [facility] [id number] [facility] 2019-06-08 08:21:00 2019-06-08 08:21:00 [facility] [id number] [facility] 2019-06-05 12:28:00 2019-06-05 12:28:00 [facility] [id number] [facility] 2019-06-05 09:00:00 2019-06-05 09:00:00 [facility] [id number] [facility] 2019-04-24 11:00:00 2019-04-24 11:00:00 [facility] [place] [id number] [facility] 2019-04-17 11:00:00 2019-04-17 11:00:00 [facility] [id number] [facility] 2019-04-10 11:00:00 2019-04-10 11:00:00 [facility] [id number] [facility] 2019-04-04 15:12:00 2019-04-04 15:12:00 [facility] [id number] [facility] 2019-03-28 10:00:00 2019-03-28 10:00:00 [facility] [id number] [facility] 2018-06-07 09:00:00 2018-06-07 09:00:00 [facility] [id number] [facility] 2018-05-26 12:03:00 2018-05-26 12:03:00 [facility] [id number] [facility] 2018-05-25 09:03:00 2018-05-25 09:03:00 [facility] [id number] [facility] 2018-05-19 21:09:00 2018-05-19 21:09:00 [facility] [id number] [facility] 2018-05-19 10:00:00 2018-05-19 10:00:00 [facility] [id number] [facility] 2018-04-25 09:00:00 2018-04-25 09:00:00 [facility] [id number] [facility] 2018-04-19 09:00:00 2018-04-19 09:00:00 [facility] [id number] [facility] Results Test Description Test Time Test Comments Results Result Co mments Source CBC W/AUTO [id number] 00:00:00* Test Item Value Reference Range Interpretation Comme nts NUCLEATED RBCS (test code = 06016-6) 0.0 /100 WBC'S See_Comment [Automated messa ge] The system which generated this result transmitted reference range: 0.0 /100 WBC'S. The reference range was not used to interpret this result as normal/abnormal. ABSOLUTE EOSINOPHILS (test code = 50217-2) 0.15 K/UL See_Comment [Automated messa ge] The system which generated this result transmitted reference range: 0.00-0.50 K/UL. The reference range was not used to interpret this result as normal/abnormal. ABSOLUTE LYMPHOCYTES (test code = 74331-1) 5.41 K/UL See_Comment H [Automated messa ge] The system which generated this result transmitted reference range: 1.00-4.00 K/UL. The reference range was not used to interpret this result as normal/abnormal. ABSOLUTE MONOCYTES (test code = 17136-8) 0.79 K/UL See_Comment [Automated messa ge] The system which generated this result transmitted reference range: 0.20-1.00 K/UL. The reference range was not used to interpret this result as normal/abnormal. ABSOLUTE NEUTROPHILS (test code = 52791-8) 5.33 K/UL See_Comment [Automated messa ge] The system which generated this result transmitted reference range: 1.50-7.50 K/UL. The reference range was not used to interpret this result as normal/abnormal. BASOPHILS (test code = 79917-6) 0.6 % EOSINOPHILS (test code = 55311-3) 1.3 % HEMATOCRIT (test code = 34579-0) 40.5 % See_Comment [Automated messa ge] The system which generated this result transmitted reference range: 34.0-45.0 %. The reference range was not used to interpret this result as normal/abnormal. HEMOGLOBIN (test code = 718-7) 13.3 G/DL See_Comment [Automated messa ge] The system which generated this result transmitted reference range: 11.5-15.5 G/DL. The reference range was not used to interpret this result as normal/abnormal. LYMPHOCYTES (test code = 22552-9) 45.9 % MCH (test code = 32371-3) 28.5 PG See_Comment [Automated messa ge] The system which generated this result transmitted reference range: 25.0-33.0 PG. The reference range was not used to interpret this result as normal/abnormal. MCHC (test code = 26853-2) 32.8 G/DL See_Comment [Automated messa ge] The system which generated this result transmitted reference range: 31.0-36.0 G/DL. The reference range was not used to interpret this result as normal/abnormal. MCV (test code = 66637-2) 86.9 fL See_Comment [Automated messa ge] The system which generated this result transmitted reference range: 80.0-99.0 fL. The reference range was not used to interpret this result as normal/abnormal. MONOCYTES (test code = 81652-9) 6.7 % NEUTROPHILS (test code = 53062-9) 45.2 % PLATELET COUNT (test code = 68401-3) 311 K/UL See_Comment [Automated messa ge] The system which generated this result transmitted reference range: 130-400 K/UL. The reference range was not used to interpret this result as normal/abnormal. RBC (test code = 48310-0) 4.66 M/UL See_Comment [Automated messa ge] The system which generated this result transmitted reference range: 3.80-5.40 M/UL. The reference range was not used to interpret this result as normal/abnormal. RDW (test code = 64737-7) 14.2 % See_Comment [Automated messa ge] The system which generated this result transmitted reference range: 11.5-15.0 %. The reference range was not used to interpret this result as normal/abnormal. WBC (test code = 66722-2) 11.8 K/UL See_Comment H [Automated messa ge] The system which generated this result transmitted reference range: 3.5-11.0 K/UL. The reference range was not used to interpret this result as normal/abnormal. COMPREHENSIVE METABOLIC [id number] 00:00:00* Test Item Value Reference Range Interpretation Comme nts ALBUMIN (test code = 1751-7) 4.2 G/DL See_Comment [Automated messa ge] The system which generated this result transmitted reference range: 3.5-5.2 G/DL. The reference range was not used to interpret this result as normal/abnormal. ALKALINE PHOSPHATASE (test code = 6768-6) 117 U/L See_Comment [Automated message] The system which generated this result transmitted reference range: 40-142 U/L. The reference range was not used to interpret this result as normal/abnormal. BILIRUBIN, TOTAL (test code = 1975-2) 0.2 MG/DL See_Comment [Automated message] The system which generated this result transmitted reference range: <=1.2 MG/DL. The reference range was not used to interpret this result as normal/abnormal. BUN (test code = 3094-0) 17 MG/DL See_Comment [Automated messa ge] The system which generated this result transmitted reference range: 8-23 MG/DL. The reference range was not used to interpret this result as normal/abnormal. CALCIUM (test code = 74531-0) 9.5 MG/DL See_Comment [Automated messa ge] The system which generated this result transmitted reference range: 8.5-10.5 MG/DL. The reference range was not used to interpret this result as normal/abnormal. CALC A/G RATIO (test code = 1759-0) 1.5 RATIO See_Comment [Automated messa ge] The system which generated this result transmitted reference range: 1.0-2.6 RATIO. The reference range was not used to interpret this result as normal/abnormal. CALC BUN/CREAT (test code = 3097-3) 21 RATIO See_Comment [Automated messa ge] The system which generated this result transmitted reference range: 6-28 RATIO. The reference range was not used to interpret this result as normal/abnormal. CALC GLOBULIN (test code = 13414-9) 2.8 G/DL See_Comment [Automated messa ge] The system which generated this result transmitted reference range: 1.9-3.7 G/DL. The reference range was not used to interpret this result as normal/abnormal. CARBON DIOXIDE (test code = 1963-8) 23 MEQ/L See_Comment [Automated messa ge] The system which generated this result transmitted reference range: 19-31 MEQ/L. The reference range was not used to interpret this result as normal/abnormal. CHLORIDE (test code = 2075-0) 105 MEQ/L See_Comment [Automated messa ge] The system which generated this result transmitted reference range: 95-107 MEQ/L. The reference range was not used to interpret this result as normal/abnormal. CREATININE (test code = 2160-0) 0.81 MG/DL See_Comment [Automated messa ge] The system which generated this result transmitted reference range: 0.60-1.30 MG/DL. The reference range was not used to interpret this result as normal/abnormal. eGFR (2020 CKD-EPI) (test code = 86171-5) 76 ML/MIN/1.73 See_Comment [Automated messa ge] The system which generated this result transmitted reference range: >60 ML/MIN/1.73. The reference range was not used to interpret this result as normal/abnormal. GLUCOSE (test code = 1558-6) 135 MG/DL See_Comment H [Automated messa ge] The system which generated this result transmitted reference range: 70-99 MG/DL. The reference range was not used to interpret this result as normal/abnormal. POTASSIUM (test code = 2823-3) 4.6 MEQ/L See_Comment [Automated messa ge] The system which generated this result transmitted reference range: 3.5-5.4 MEQ/L. The reference range was not used to interpret this result as normal/abnormal. PROTEIN, TOTAL (test code = 2885-2) 7.0 G/DL See_Comment [Automated messa ge] The system which generated this result transmitted reference range: 6.1-8.3 G/DL. The reference range was not used to interpret this result as normal/abnormal. AST (test code = 1920-8) 17 U/L See_Comment [Automated messa ge] The system which generated this result transmitted reference range: 9-40 U/L. The reference range was not used to interpret this result as normal/abnormal. ALT (test code = 1742-6) 15 U/L See_Comment [Automated messa ge] The system which generated this result transmitted reference range: 5-40 U/L. The reference range was not used to interpret this result as normal/abnormal. SODIUM (test code = 2951-2) 141 MEQ/L See_Comment [Automated messa ge] The system which generated this result transmitted reference range: 133-146 MEQ/L. The reference range was not used to interpret this result as normal/abnormal. LIPID PANEL WITH REFLEX DIRECT [id number] 00:00:00* Test Item Value Reference Range Interpretation Comme nts CALC LDL CHOL (test code = 46627-0) 129 MG/DL See_Comment H [Automated messa ge] The system which generated this result transmitted reference range: <100 MG/DL. The reference range was not used to interpret this result as normal/abnormal. CHOLESTEROL (test code = 2093-3) 207 MG/DL See_Comment H [Automated messa ge] The system which generated this result transmitted reference range: <200 MG/DL. The reference range was not used to interpret this result as normal/abnormal. HDL CHOLESTEROL (test code = 2085-9) 54 MG/DL See_Comment [Automated messa ge] The system which generated this result transmitted reference range: >39 MG/DL. The reference range was not used to interpret this result as normal/abnormal. RISK RATIO LDL/HDL (test code = 48011-3) 2.39 RATIO See_Comment [Automated message] The system which generated this result transmitted reference range: <3.22 RATIO. The reference range was not used to interpret this result as normal/abnormal. TRIGLYCERIDES (test code = 2571-8) 125 MG/DL See_Comment [Automated messa ge] The system which generated this result transmitted reference range: <150 MG/DL. The reference range was not used to interpret this result as normal/abnormal.
[2024-03-21] MEDS ORDERED: NA CHLORIDE 0.9% 1,000 ML ONE (10:08)
[2024-03-21 10:16] LABS: Absolute Lymphocytes (CBC) 2.1 K/uL (0.7-4.9); Absolute Monocytes 1.2 K/uL (0.1-1.3); Absolute Neutrophil 9.4 K/uL (1.8-8.0); Basophils % 0.4 % (0-1.3); Hematocrit 38.7 % (36.0-45.0); Hemoglobin 12.8 g/dL (12.0-15.0); Lymphocytes % 16.2 % (15.3-44.8); MCH 28.2 pg (27.0-35.0); MCV 85.4 fL (80-100); MPV 9.6 fL (7.6-11.3); Monocytes % 9.1 % (3.3-12.3); Neutrophils % 74.3 % (41.7-73.7); Nucleated Red Blood Cells % 0.1 % (0-0); Platelets 260 thou/uL (152-406); RBC Red Blood Cell Count 4.53 M/uL (3.86-4.86); Red Cell Distribution Width 14.3 % (12.1-15.2)
[2024-03-21 10:31] LABS: Albumin/Globulin Ratio 0.7 (1.1-1.8); Anion Gap 9.3 mEq/L (5.0-15.0); Bilirubin Total 0.3 mg/dL (0.2-1.0); Globulin 4.2 g/dL (2.3-3.5); Potassium 3.3 mEq/L (3.5-5.1); Protein, Total 7.2 g/dL (6.4-8.2)
[2024-03-21] MEDS ORDERED: POTASSIUM CL SA 10 MEQ TAB PO ONE (11:29)
[2024-03-21 11:38] LABS: Specific Gravity 1.013 (1.005-1.030); Sqamous Epithelial <5 /HPF (None Seen); Transitional Epithelial <5 /HPF (None Seen); Urine Bacteria >50 /HPF (<20); Urine Bilirubin NEGATIVE (Negative); Urine Blood Trace (Negative); Urine Clarity Extremely Turbid (Clear); Urine Color Yellow (Yellow); Urine Culture Reflex Order REFLEXED; Urine Glucose NEGATIVE (Negative); Urine Ketones NEGATIVE (Negative); Urine Microscopic Reflex YN ORDER UMIC; Urine Mucus 4+ /HPF (None Seen); Urine Nitrite 2+ (Negative); Urine Protein TRACE (Negative); Urine RBC <5 /HPF (None Seen); Urine Urobilinogen Normal (Normal)
[2024-03-21] MEDS ORDERED: Levofloxacin500mg IV 500 MG/100 ML BAG IV ONE (11:47)
--- NOTE | 2024-03-21 12:01 | ER ---
Nurse's Notes [facility] Name: Farida Perea Age: 74 yrs Sex: Female : 1950 Arrival Date: 03/21/2024 Time: 09:24 Bed 20 Private MD: Diagnosis: UTI, diarrhea, dehydration Presentation: 03/21 09:58 Chief complaint: Patient states: she has been having diarrhea for approx 2 weeks. ap3 patient denies any abdominal pain but reports that she has started having low back pain recently that she rates a 8/10 on the pain scale. Coronavirus screen: At this time, the client does not indicate any symptoms associated with coronavirus-19. Ebola Screen: No symptoms or risks identified at this time. Initial Sepsis Screen: Does the patient meet any 2 criteria? HR > 90 bpm. Does the patient have a suspected source of infection? No. Patient's initial sepsis screen is negative. Risk Assessment: Do you want to hurt yourself or someone else? Patient reports no desire to harm self or others. Onset of symptoms is unknown. 09:58 Method Of Arrival: Ambulatory ap3 09:58 Acuity: ROGE 3 ap3 Triage Assessment: 10:01 General: Appears in no apparent distress. Behavior is calm, cooperative, appropriate ap3 for age, Reports fatigue for. Pain: Complains of pain in low back area Pain currently is 8 out of 10 on a pain scale. Neuro: Level of Consciousness is awake, alert, obeys commands, Oriented to person, place, time, situation, Appropriate for age. Cardiovascular: Patient's skin is warm and dry. Respiratory: Airway is patent Respiratory effort is even, unlabored, Respiratory pattern is regular, symmetrical. GI: Reports diarrhea. Historical: - Allergies: 10:01 No Known Allergies; ap3 - Home Meds: 10:01 None [Active]; ap3 - PMHx: 10:01 None; ap3 - Immunization history:: Client reports receiving the 2nd dose of the Covid vaccine. - Infectious Disease History:: Denies. - Social history:: Smoking status: Patient reports the use of cigarette tobacco products, smokes one-half pack cigarettes per day. Screenin:00 [facility] ED Fall Risk Assessment (Adult) History of falling in the last 3 months, kc6 including since admission No falls in past 3 months (0 pts) Confusion or Disorientation No (0 pts) Intoxicated or Sedated No (0 pts) Impaired Gait No (0 pts) Mobility Assist Device Used No (0 pt) Altered Elimination No (0 pt) Score/Fall Risk Level 0 - 2 = Low Risk. Nutritional screening: No deficits noted. 10:02 Abuse screen: Denies threats or abuse. Tuberculosis screening: No symptoms or risk ap3 factors identified. Assessment: 11:02 General: Appears in no apparent distress. comfortable, well groomed, well developed, kc Behavior is calm, cooperative, appropriate for age. Pain: Complains of pain in low back area. Neuro: Level of Consciousness is awake, alert, obeys commands, Oriented to person, place, time, situation, Appropriate for age. Cardiovascular: Capillary refill < 3 seconds. Respiratory: Airway is patent Trachea midline Respiratory effort is even, unlabored, Respiratory pattern is regular, symmetrical. GI: Abdomen is round Bowel sounds present X 4 quads. Abd is soft X 4 quads Reports lower abdominal pain, diarrhea, Patient currently denies nausea, vomiting. : No signs and/or symptoms were reported regarding the genitourinary system. EENT: No signs and/or symptoms were reported regarding the EENT system. Derm: No signs and/or symptoms reported regarding the dermatologic system. Skin is intact, is healthy with good turgor, Skin is pink, warm \T\ dry. Musculoskeletal: No signs and/or symptoms reported regarding the musculoskeletal system. Circulation, motion, and sensation intact. Capillary refill < 3 seconds, Range of motion: intact in all extremities. 12:01 Reassessment: d/c pending IV antibiotic completion. [facility] 12:02 Reassessment: Patient appears in no apparent distress at this time. No changes from [facility] previously documented assessment. Patient and/or family updated on plan of care and expected duration. Pain level reassessed. Patient is alert, oriented x 3, equal unlabored respirations, skin warm/dry/pink. 13:02 Reassessment: Patient appears in no apparent distress at this time. No changes from [facility] previously documented assessment. Patient and/or family updated on plan of care and expected duration. Pain level reassessed. Patient is alert, oriented x 3, equal unlabored respirations, skin warm/dry/pink. Vital Signs: 09:58 BP 144 / 78; Pulse 113; Resp 18; Temp 97.8; Pulse Ox 97% ; Weight 72.57 kg; Height 5 ap3 ft. 4 in. ; Pain 8/10; 11:04 BP 147 / 75; Pulse 107; Resp 20 S; Pulse Ox 95% on R/A; kc6 11:25 BP 141 / 73; Pulse 104; Resp 18 S; Pulse Ox 96% on R/A; kc6 13:16 BP 146 / 76; Pulse 98; Resp 20 S; Pulse Ox 98% on R/A; kc6 09:58 Body Mass Index 27.46 (72.57 kg, 162.56 cm) ap3 09:58 Pain Scale: Adult ap3 ED Course: 09:27 Patient arrived in ED. im 09:29 Chuck Philip MD is Attending Physician. sp3 09:59 Vicki Khanna, BLU is Primary Nurse. kc6 10:01 Triage completed. ap3 10:02 Arm band placed on right wrist. ap3 10:02 Patient has correct armband on for positive identification. Bed in low position. Call ap3 light in reach. Side rails up X 1. Provided Education on: call light use. Pulse ox on. NIBP on. 10:04 Door closed. Warm blanket given. aw1 10:04 Initial lab(s) drawn, by me, sent to lab. Inserted saline lock: 20 gauge in right aw1 antecubital area, using aseptic technique. 10:10 CBC with Diff Sent. aw1 10:10 CMP Sent. aw1 10:10 Lipase Sent. aw1 10:10 Urinalysis w/ reflexes Sent. aw1 12:56 Fecal Leukocyte Stain Sent. kc6 12:56 Ova And Parasites Sent. kc6 12:56 Rotavirus Antigen Sent. kc6 12:56 Stool Culture Sent. kc6 13:34 No provider procedures requiring assistance completed. IV discontinued, intact, kc6 bleeding controlled, No redness/swelling at site. Pressure dressing applied. Administered Medications: 10:11 Drug: NS 0.9% IV 1000 ml IV at 1 bolus Per protocol; 1000 mL bolus Route: IV; Rate: 1 nj1 bolus; Site: right antecubital; 11:26 Follow up: Response: No adverse reaction; IV Status: Completed infusion; IV Intake: kc6 1000ml 11:31 Drug: Potassium Chloride PO 40 mEq PO once Route: PO; kc6 11:41 Follow up: Response: No adverse reaction kc6 12:07 Drug: levofloxacin IVPB 500 mg 100 ml IVPB once over 60 mins Volume: 100 ml; Route: kc6 IVPB; Infused Over: 60 mins; Site: right antecubital; 13:16 Follow up: Response: No adverse reaction; IV Status: Completed infusion; IV Intake: kc6 100ml Medication: 13:35 VIS not applicable for this client. kc6 Intake: 11:26 IV: 1000ml; Total: 1000ml. kc6 13:16 IV: 100ml; Total: 1100ml. kc6 Outcome: 12:01 Discharge ordered by . sp3 13:35 Discharged to home ambulatory, with family, kc6 13:35 Condition: good 13:35 Discharge instructions given to patient, family, Instructed on discharge instructions, follow up and referral plans. medication usage, Demonstrated understanding of instructions, follow-up care, medications, Prescriptions given X 2, 13:39 Patient left the ED. kc6 Signatures: Ashlyn Kee RN RN ap3 Chuck Philip MD MD sp3 Vicki Khanna RN RN kc6 Saira Brian RN RN nj1 Kylie Dennis Alyssa aw1
--- NOTE | 2024-03-21 12:01 | EDPHYS ---
Physician Documentation [facility] Name: Farida Perea Age: 74 yrs Sex: Female : 1950 Arrival Date: 03/21/2024 Time: 09:24 Bed 20 Private MD: ED Physician Chuck Philip HPI: 03/21 11:18 This 74 yrs old Female presents to ER via Ambulatory with complaints of Back Pain, sp3 Diarrhea. 11:18 74-year-old female with no past medical history who takes no medications presents with sp3 diarrhea and mild abdominal cramping for 3 to 4 days. Patient states that she may have had bad food but is unaware of any exact inciting stimulus. She denies blood or mucus in her stools. She also denies fever, vomiting, chest pain, shortness of breath, significant abdominal pain, syncope, near syncope, or any other signs or symptoms on ROS at this time. Mild low back pain reported over the last 24 hours.. Historical: - Allergies: 10:01 No Known Allergies; ap3 - Home Meds: 10:01 None [Active]; ap3 - PMHx: 10:01 None; ap3 - Immunization history:: Client reports receiving the 2nd dose of the Covid vaccine. - Infectious Disease History:: Denies. - Social history:: Smoking status: Patient reports the use of cigarette tobacco products, smokes one-half pack cigarettes per day. ROS: 11:19 Constitutional: Negative for fever, chills, and weight loss, Eyes: Negative for injury, sp3 pain, redness, and discharge, ENT: Negative for injury, pain, and discharge, Neck: Negative for injury, pain, and swelling, Cardiovascular: Negative for chest pain, palpitations, and edema, Respiratory: Negative for shortness of breath, cough, wheezing, and pleuritic chest pain, Back: Negative for injury and pain, MS/Extremity: Negative for injury and deformity, Skin: Negative for injury, rash, and discoloration, Neuro: Negative for headache, weakness, numbness, tingling, and seizure, Psych: Negative for depression, anxiety, suicide ideation, homicidal ideation, and hallucinations, Allergy/Immunology: Negative for hives, rash, and allergies, Endocrine: Negative for neck swelling, polydipsia, polyuria, polyphagia, and marked weight changes, Hematologic/Lymphatic: Negative for swollen nodes, abnormal bleeding, and unusual bruising, 11:19 All other systems are negative, Exam: 11:19 Constitutional: This is a well developed, well nourished patient who is awake, alert, sp3 and in no acute distress. Head/Face: Normocephalic, atraumatic. Eyes: Pupils equal round and reactive to light, extra-ocular motions intact. Lids and lashes normal. Conjunctiva and sclera are non-icteric and not injected. Cornea within normal limits. Periorbital areas with no swelling, redness, or edema. Neck: Trachea midline, no thyromegaly or masses palpated, and no cervical lymphadenopathy. Supple, full range of motion without nuchal rigidity, or vertebral point tenderness. No Meningismus. Chest/axilla: Normal chest wall appearance and motion. Nontender with no deformity. No lesions are appreciated. Cardiovascular: Regular rate and rhythm with a normal S1 and S2. No gallops, murmurs, or rubs. Normal PMI, no JVD. No pulse deficits. Respiratory: Lungs have equal breath sounds bilaterally, clear to auscultation and percussion. No rales, rhonchi or wheezes noted. No increased work of breathing, no retractions or nasal flaring. Abdomen/GI: Soft, non-tender, with normal bowel sounds. No distension or tympany. No guarding or rebound. No evidence of tenderness throughout. Back: No spinal tenderness. No costovertebral tenderness. Full range of motion. Skin: Warm, dry with normal turgor. Normal color with no rashes, no lesions, and no evidence of cellulitis. MS/ Extremity: Pulses equal, no cyanosis. Neurovascular intact. Full, normal range of motion. Neuro: Awake and alert, GCS 15, oriented to person, place, time, and situation. Cranial nerves II-XII grossly intact. Motor strength 5/5 in all extremities. Sensory grossly intact. Cerebellar exam normal. Normal gait. Psych: Awake, alert, with orientation to person, place and time. Behavior, mood, and affect are within normal limits. 11:19 Abdomen/GI: No abdominal pain to palpation, rebound or guarding. No CVA tenderness., 11:20 Cardiovascular: Heart rate 107 on triage and 90s on my evaluation., sp3 Vital Signs: 09:58 BP 144 / 78; Pulse 113; Resp 18; Temp 97.8; Pulse Ox 97% ; Weight 72.57 kg; Height 5 ap3 ft. 4 in. ; Pain 8/10; 11:04 BP 147 / 75; Pulse 107; Resp 20 S; Pulse Ox 95% on R/A; kc6 11:25 BP 141 / 73; Pulse 104; Resp 18 S; Pulse Ox 96% on R/A; kc6 13:16 BP 146 / 76; Pulse 98; Resp 20 S; Pulse Ox 98% on R/A; kc6 09:58 Body Mass Index 27.46 (72.57 kg, 162.56 cm) ap3 09:58 Pain Scale: Adult ap3 MDM: 09:53 Patient medically screened. sp3 11:20 Data reviewed: vital signs, nurses notes, lab test result(s). ED course: 74-year-old sp3 female with chief complaint diarrhea with no significant other symptoms. Differential diagnosis includes gastroenteritis, viral illness, foodborne illness, among others. I am not highly suspicious for sepsis, shock, cardiac pathology, significant surgical pathology, [employer] or pathology or any other critical process. Workup will include laboratory values, urine analysis and general supportive care with IV fluids. Further antibiotics will be layered on if indicated.. 11:55 ED course: Patient with UTI and continued diarrhea. Will attempt to get stool sample sp3 however patient is stable for discharge. Will discharge her on Levaquin and Flagyl p.o. after 1 dose of IV Levaquin in the ED. Follow-up with Dr. Jung. Patient was return here if she gets worse in any way.. 03/21 09:57 Order name: CBC with Diff; Complete Time: 11:22 sp3 03/21 09:57 Order name: CMP; Complete Time: 11:22 sp3 03/21 09:57 Order name: Lipase; Complete Time: 11:22 sp3 03/21 09:57 Order name: Urinalysis w/ reflexes; Complete Time: 11:40 sp3 03/21 11:41 Order name: Urine Culture EDWI 03/21 12:44 Order name: Stool Culture sp3 03/21 12:44 Order name: Fecal Leukocyte Stain sp3 03/21 12:44 Order name: Ova And Parasites sp3 03/21 12:44 Order name: Rotavirus Antigen sp3 03/21 13:04 Order name: CDIFF em1 03/21 09:57 Order name: IV Saline Lock; Complete Time: 10:04 sp3 03/21 09:57 Order name: Labs collected and sent; Complete Time: 10:04 sp3 03/21 11:23 Order name: Recheck Vital Signs; Complete Time: 11:26 sp3 Administered Medications: 10:11 Drug: NS 0.9% IV 1000 ml IV at 1 bolus Per protocol; 1000 mL bolus Route: IV; Rate: 1 nj1 bolus; Site: right antecubital; 11:26 Follow up: Response: No adverse reaction; IV Status: Completed infusion; IV Intake: kc6 1000ml 11:31 Drug: Potassium Chloride PO 40 mEq PO once Route: PO; kc6 11:41 Follow up: Response: No adverse reaction kc6 12:07 Drug: levofloxacin IVPB 500 mg 100 ml IVPB once over 60 mins Volume: 100 ml; Route: kc6 IVPB; Infused Over: 60 mins; Site: right antecubital; 13:16 Follow up: Response: No adverse reaction; IV Status: Completed infusion; IV Intake: kc6 100ml Disposition Summary: 03/21/24 12:01 Discharge Ordered Notes: Location: Home sp3 Condition: Stable sp3 Diagnosis - UTI, diarrhea, dehydration sp3 Followup: sp3 - With: Private Physician - When: Upon discharge from the Emergency Department - Reason: Continuance of care Discharge Instructions: - Discharge Summary Sheet sp3 - Diarrhea, Adult sp3 - Urinary Tract Infection, Adult sp3 Forms: - Medication Reconciliation Form sp3 - Antibiotic Education sp3 - Prescription Opioid Use sp3 - Patient Portal Instructions sp3 - Leadership Thank You Letter sp3 Prescriptions: - Flagyl 500 mg Oral tablet - take 1 tablet ORAL route every 8 hours for 10 days; 21 tablet; Refills: 0, sp3 Product Selection Permitted - levofloxacin 500 mg Oral tablet - take 1 tablet ORAL route once daily for 7 days; 7 tablet; Refills: 0, Product sp3 Selection Permitted Signatures: Dispatcher [employer] Ashlyn Linares RN RN ap3 Chuck Philip MD MD sp3 Vicki Khanna RN RN kc6 Saira Brian RN RN nj1 Corrections: (The following items were deleted from the chart) 13:04 13:04 C.difficile GDH Ag \T\ Toxin AB+LAB.BRZ ordered. EDMS EDMS
[2024-03-21 14:06] VITALS: BP 146/76; TEMP 97.8; O2SAT 98
[2024-03-21 14:13] LABS: C.diff Antigen/Toxin Ag neg : Tox neg (NEG : NEG); CDIFF INTERNAL NEG CONTROL White Background (WHITE BKGD); STOOL CONSISTENCY Liquid/Semi-Solid
== END 2024-03-21 13:39 | disposition home or self-care (01) ==
LOC: ER 09:24
DX: N39.0 Urinary tract infection, site not specified (principal); E86.0 Dehydration; R19.7 Diarrhea, unspecified; F17.210 Nicotine dependence, cigarettes, uncomplicated
CPT/HCPCS: 87088; 87045; 85025; 81001; 87086; 36415; 89055; 87177; 87046; 87209; 87324; 83690; 80053; 87425; J7030